=== PATIENT | male | born 2005 | race Native Hawaiian/Other Pacific Islander ===

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

== ENCOUNTER 2025-07-27 02:28 | Emergency (ER) | payer SELFPAY ==
--- NOTE | ~2025-07-27 | XR_ITS ---
CLINICAL HISTORY: fever 1 view chest x-ray Comparison: None provided Findings: No consolidation or effusion. Heart size is normal. No acute fracture. IMPRESSION: 1. No acute findings. This document has been electronically signed by: Sathish Denise MD on 07/27/2025 04:13:49
[2025-07-27 02:35] VITALS: BP 128/75; PULSE 64; RESP 16; TEMP 36.8; O2SAT 99; BMI 20.3
[2025-07-27 03:04] LABS: MANUAL DIFF FLAG NO
--- OUTSIDE RECORDS SUMMARY | 2025-07-27 03:07 | XMS_ITS | Clinical Summary ---
Author Organization [employer] Address [address] [place] [address] Care Team Providers Care Welt Cutter Name Role Phone Isaura Calderón NP Primary Care Provider [phone] Allergies No known active allergies Medications hydrOXYzine HCl (Atarax) 25 MG tabletIndicatio ns:Anxiety-like symptoms Take 1 tab po TID prn anxiety sxs 30 tablet 2 3 Active albuterol 108 (90 Base) MCG/ACT inhaler Inhale 2 puffs every 4 (four) hours if needed for wheezing or shortness of breath. 18 g 3 Active albuterol (2.5 MG/3ML) 0.083% nebulizer solution Take 3 mL (2.5 mg) by nebulization every 6 (six) hours if needed for wheezing. 75 mL 1 3 Active cetirizine (ZyrTEC) 10 MG tabletIndicatio ns:Environmenta l allergies Take 1 tablet (10 mg) by mouth in the morning. 90 tablet 2 4 Active fluticasone (Flonase) 50 MCG/ACT nasal sprayIndication s:Environmental allergies Administer 1 spray into each nostril 2 times daily. Shake gently. Before first use, prime pump. After use, clean tip and replace cap. 16 g 11 4 Active Active Problems Problem Noted Date Diagnosed Date Environmental allergies 01/10/2023 Mild intermittent asthma without complication Academic skill disorder 01/10/2023 Immunizations Immunization Administration Dates Next Due DTaP 02/09/2010, 7,04/09/2006,01/18,2005 HPV 9-Valent 09/18/2017,03/11/2017 Hep A, ped/adol, 2 dose 06/09/2007,08/19/2006 Hep B, Adolescent or Pediatric 04/09/2006,2005,2005 Hib (HbOC) 11/14/2006,01/18/2006,2005 IPV 02/09/2010, 6,01/18/2006,09/20 Influenza, IIV3, injectable 08/29/2011, 9 Influenza, Split (incl. sourav fied surface antigen) 08/06/2013 MMR 11/14/2006,08/19/2006 Meningococcal MCV4P ACYW-135 09/24/2021,03/11/20 17 Pneumococcal Conjugate PCV 7 11/14/2006, 08/19/2006,06/09/2006,04/09 Tdap 03/11/2017 Varicella 02/09/2010,08/14/2007 Social History Tobacco Use Types Packs/Day Years Used Date Smoking Tobacco: Never Passive Smoke Exposure: Never Smokeless Tobacco: Never Tobacco Cessation:Counseling Given: Not Answered Depression Answer Date Recorded Patient Health Questionnaire-9 Score 5 01/10/2023 Depression Answer Date Recorded Patient Health Questionnaire-2 Score 2 01/10/2023 Sex and Gender Information Value Date Recorded Sex Assigned at Male 08/19/2022 10:20 AM EDT Legal Sex Male 10:20 AM EDT Gender Identity Male 08/19/2022 10:20 AM EDT Sexual Orientation Straight 08/19/2022 10 :20 AM EDT Last Filed Vital Signs Vital Sign Reading Time Taken Comments Blood Pressure 124/65 11/21/2023 4:08 PM EST Pulse 82 11/21/2023 4:08 PM EST Temperature 36.7 C (98.1 F) 11/21/2023 4:08 PM EST Respiratory Rate 20 11/21/2023 4:08 PM EST Oxygen Saturation 98% 10/17/2023 3:24 PM EST Inhaled Oxygen Concentration - - Weight 52.8 kg (116 lb 6.4 oz) 11/21/2023 4:08 P M EST Height 166.4 cm (5' 5.5 ) 11/21/2023 4:08 PM EST Body Mass Index 19.08 11/21/2023 4:08 PM EST Plan of Treatment Health Maintenance Due Date Last Done Comments Chlamydia and Gonorrhea Screening 2005 HIV Screening 2005 SDOH Screening 2005 Disability Screening 2005 Dental X-Ray: Full Mouth 04/02/2015 04/01/2012 Alcohol/Substance Use Screening 2017 Family Planning (PISQ) 2020 Meningococcal B Vaccine (1 of 2 - Standard) 2021 Dental Oral Exam 11/14/2022 05/13/2022, 02/2021, 11/16/2019, Additional history exists Dental Prophylaxis 11/14/2022 05/13/2022, 0 02/21/2021, 11/16/2019, Additional history exists Dental X-Ray: Bitewings 05/14/2023 05/13/20 22, 02/21/2021, 11/16/2019, Additional history exists Hepatitis C Screening 2023 Depression Screening 01/11/2024 01/10/2023, 01/11/20 23 Pneumococcal Vaccine: Pediatrics (0 to 5 Years) and At-Risk Patients (6 to 49) Years (1 of 2 - PCV) 2024 11/14/2006, 08/19/2006, 06/09/2006, Additional history exists Tobacco Screening 11/21/2024 11/21/2023 COVID-19 Vaccine (3 - season) 2025 09/24/2021, 08/30/2021 Influenza Vaccine (#1) 2025 3, 08/29/2011, 10/31/2008 DTaP/Tdap/Td Vaccines (7 - Td or Tdap) 03/11/2027 03/11/2017, 02/09/2010, 11/15/2006, Additional history exists Zoster Vaccines (1 of 2) 2055 RSV Patients and Patients Aged 60 years or older (1 - 1-dose 75+ series) 2080 Hepatitis B Vaccines Completed 04/09/2006, 01/18/2006, 2005 HIB Vaccines Completed 11/14/2006, 04/0 10/2005, 2005 Hepatitis A Vaccines Completed 06/09/2007, 08/19/20 IPV Vaccines Completed 02/09/2010, 03/21, 01/18/2006, Additional history exists HPV Vaccines Completed 09/18/2017, 03/11/2017 Meningococcal Vaccine Completed 09/24/2021, 017 RSV under 20 months Aged Out No longe r eligible based on patient's age to complete this topic Rotavirus Vaccines Aged Out No longer eligible based on patient's age to complete this topic Procedures Procedure Name Priority Date/Time Associated Diagnosis Comments PROPHYLAXIS - ADULT Routine 05/13/2022 1 2:00 AM EDT BITEWINGS - 4 RADIOGRAPHIC IMAGES Routine 05/13/2022 12:00 AM EDT PERIODIC ORAL EVALUATION - ESTABLISHED PATIENT Routine 05/13/2022 12:00 AM EDT PANORAMIC RADIOGRAPHIC IMAGE Routine 04/01/2012 12:00 AM EDT from Last 3 Months or Most Recently Relevant to Health Maintenance Insurance [facility] C3 DENTAL-[facility] MEDICAID STAND CHILD Care Teams Welt Cutter Relationship Specialty Start Date End Date Isaura Calderón NP [address] [place] [id number] PCP - General Family Medicine 11/21/23
--- OUTSIDE RECORDS SUMMARY | 2025-07-27 03:07 | XMS_ITS | Encounter Summary ---
Author Organization [employer] Address [address] [facility] [address] [facility] [address] [place] [address] Care Team Providers Care Harvesting Manager Name Role Phone Kassidy Paola CASTILLO Primary Care Provider [phone] Isaura Calderón NP Primary Care Provider [phone] Encounter Details Date Type Department Care Team (Late st Contact Info) Description 11/15/2022 Abstract [facility] [address] [place] [address] Heath Spencer DMD Social History Tobacco Use Types Packs/Day Years Used Date Smoking Tobacco: Never Assessed Sex and Gender Information Value Date Recorded Sex Assigned at Male 08/19/2022 10:20 AM EDT Legal Sex Male 10:20 AM EDT Gender Identity Male 08/19/2022 10:20 AM EDT Sexual Orientation Straight 08/19/2022 10 :20 AM EDT documented as of this encounter Plan of Treatment Not on file documented as of this encounter Procedures Procedure Name Priority Date/Time Associated Diagnosis Comments 19 O SEALANT - PER TOOTH Routine 023 12:00 AM EST 32 EXTRACTION Routine 04/25/2021 12:00 AM EDT 17 EXTRACTION Routine 04/25/2021 12:00 AM EDT 16 EXTRACTION Routine 04/25/2021 12:00 AM EDT 1 EXTRACTION Routine 04/25/2021 12:00 AM EDT 15 O COMPOSITE FILLING Routine 1 12:00 AM EDT 3 O SEALANT - PER TOOTH Routine 11/22/19 20 12:00 AM EST 14 O COMPOSITE FILLING Routine 0 12:00 AM EST 10 I SEALANT - PER TOOTH Routine 019 12:00 AM EDT 7 I SEALANT - PER TOOTH Routine 05/17/20 19 12:00 AM EDT 30 BELEM COMPOSITE FILLING Routine 05/17/20 19 12:00 AM EDT 19 B COMPOSITE FILLING Routine 9 12:00 AM EST 13 DO COMPOSITE FILLING Routine 11/16/19 19 12:00 AM EST 31 O SEALANT - PER TOOTH Routine 018 12:00 AM EST 18 O SEALANT - PER TOOTH Routine 018 12:00 AM EST 29 EXTRACTION Routine 08/13/2017 12:00 AM EDT 21 EXTRACTION Routine 06/17/2017 12:00 AM EDT 12 EXTRACTION Routine 06/17/2017 12:00 AM EDT 5 EXTRACTION Routine 06/17/2017 12:00 AM EDT documented in this encounter Visit Diagnoses Not on filedocumented in this encounter Care Teams Harvesting Manager Relationship Specialty Start Date End Date Paola Yi DO [address] [place] [address] PCP - General Pediatrics 10/20/18 11/20/23 Isaura Calderón NP [address] [place] [address] PCP - General Family Medicine 11/21/23 documented as of this encounter
--- OUTSIDE RECORDS SUMMARY | 2025-07-27 03:07 | XMS_ITS | Encounter Summary ---
Author Organization [employer] Address [address] [place] [address] Care Team Providers Care Single Corner Cutter Name Role Phone Paola Yi DO Primary Care Provider [phone] Isaura Calderón NP Primary Care Provider [phone] Reason for Visit * Reason Onset Date Comments Nurse Triage 08/27/2023 Encounter Details Date Type Department Care Team (Late st Contact Info) Description 08/27/2023 Telephone [facility] [address] [place] [address] Paola Yi DO [address], [place] [id number] Nurse Triage Social History Tobacco Use Types Packs/Day Years Used Date Smoking Tobacco: Never Smokeless Tobacco: Never Depression Answer Date Recorded Patient Health Questionnaire-9 Score 5 01/10/2023 Depression Answer Date Recorded Patient Health Questionnaire-2 Score 2 01/10/2023 Sex and Gender Information Value Date Recorded Sex Assigned at Male 08/19/2022 10:20 AM EDT Legal Sex Male 10:20 AM EDT Gender Identity Male 08/19/2022 10:20 AM EDT Sexual Orientation Straight 08/19/2022 10 :20 AM EDT documented as of this encounter Miscellaneous Notes * Telephone Encounter - Liz Ferrari RN - 08/27/2023 4:33 PM EST Call to Brendon Mejia, reports having a cut to middle finger last night. Per pt punchd mirror and cut finger with broken glass. Per pt cut s pretty deep. No longer bleeding but very painful. Pt denies any discharge. Pt advised may need Td booster, sutures and possible prophylactic abx. Pt and mom agree to seek ER today for exam and possible repair. Pt advised to call back after discharge for follow up. Sent to team for ER status check PRN. Protocol Used: Finger Injury (Adult) Protocol-Based Disposition: Go to ED/UCC Now (or to Office with PCP Approval) Positive Triage Question: * Skin is split open or gaping (length > 1/2 inch or 12 mm) * All higher-acuity triage questions were negative Care Advice Discussed: * Reasons To Call Back - Looks infected (pus, redness, increasing tenderness) - You become worse * Telephone Encounter - Jed Kraft - 08/27/2023 4:28 PM EST Symptom: Skin Injury / Cuts Outcome: Talk to a nurse or provider within 15 minutes Reason: Deep cut The caller accepted this outcome Mirror, mom states its an open wound. Please contact pt mother at [phone] Bulgarian Speaker documented in this encounter Plan of Treatment Not on file documented as of this encounter Visit Diagnoses Not on filedocumented in this encounter Additional Health Concerns Assessment Noted Time PHQ-9 Depression Total Score: 5 01/11/20 23 5:08 PM EDT documented as of this encounter Care Teams Single Corner Cutter Relationship Specialty Start Date End Date Paola Yi DO [address] [place] [address] PCP - General Pediatrics 10/20/18 11/20/23 Isaura Calderón NP [address] [place] [address] PCP - General Family Medicine 11/21/23 documented as of this encounter
[2025-07-27 03:10] LABS: Hematocrit 39.0 % (42.0-52.0); Hemoglobin 12.5 g/dl (14.0-18.0); Imm Gran Abs Auto 0.03 X10*3/uL (0.00-0.03); Imm Gran Pct Auto 0.5 % (0.0-0.4); Lymphocytes Absolute Auto 1.6 X10*3/uL (1.2-4.9); Mean Corpuscular HGB Conc 32.1 g/dl (31.0-36.0); Mean Corpuscular Hemoglobin 25.1 pg (27.0-33.0); Mean Corpuscular Volume 78.3 fL (80.0-98.0); NRBC Abs Auto 0.000 X10*3/uL (0.0-0.012); NRBC Pct Auto 0.0 /100WBC (0.0-0.2); Platelet Count 125 X10*3/uL (160-400); Red Blood Count 4.98 X10*6/uL (4.60-5.80); White Blood Count 5.7 X10*3/uL (4.8-10.8)
--- NOTE | 2025-07-27 03:11 | ED.GENADULT ---
HPI - General Adult General Chief complaint: Fever Stated complaint: fever Time Seen by Provider: 07/27/25 03:05 Source: patient Limitations: no limitations History of Present Illness ED Provider: Tessie Weaver PA-C HPI narrative: 20-year-old male presents with viral syndrome x2 weeks. Associated fever, chills, body aches, headache, sore throat. Unknown if he has had sick contacts. Related Data Home Medications ?Medication ?Instructions ?Recorded ?Confirmed escitalopram oxalate 10 mg tablet 0 mg PO 03/19/22 12/24/23 fluticasone propionate 50 1 spray intranasal DAILY 03/19/22 12/24/23 mcg/actuation nasal spray,suspension loratadine 10 mg tablet 10 mg PO DAILY PRN allergies 03/19/22 12/24/23 Allergies Allergy/AdvReac Type Severity Reaction Status Date / Time Seasonal Allergies Allergy Mild nasal Verified 07/27/25 02:37 congestion No Known Drug Allergies Allergy Unknown UNKNOWN Verified 07/27/25 02:37 Review of Systems Review of Systems: Yes all other systems are reviewed and are negative Constitutional: Constitutional: Reports chills, Reports fatigue, Reports fever(s), Reports headache(s), Reports malaise and Reports night sweats ENT: Reports headache(s) and Reports sore throat Cardiovascular: Cardiovascular: Denies chest pain and Denies dyspnea Respiratory: Respiratory: Denies cough and Denies dyspnea Gastrointestinal: Gastrointestinal: Denies abdominal pain Musculoskeletal: Musculoskeletal: Reports myalgias Neurologic: Reports headache(s) Endocrine: Endocrine: Reports fatigue PMFSH Past Medical History Attestation statement: The following information was validated with the patient. Medical History (Updated 07/27/25 @ 04:16 by ANNE Day) ADHD Social History Social History (Updated 12/24/23 @ 11:05 by Dora Engel NP) Household Members: Family Household Members Other:: Lives w/ mom, siblings. Alcohol intake: never Patient Tobacco Use Status: Never used Tobacco Advance Directives: No Do you have a plan to hurt others: No Plan Current occupational status: employed and student Current occupation: rt hand / dishwash at [employer] Sexual orientation: Straight/Heterosexual Gender identity: Male Physical Exam ED Vital Signs: Vital Signs - 24 hr 07/27/25 02:35 Temperature 98.2 F Pulse Rate 64 Respiratory Rate 16 Blood Pressure 128/75 Pulse Oximetry 99 Oxygen Delivery Method Room Air BMI result Body Mass Index 20.3 Const Other: Alert well-appearing Orientation/consciousness: patient oriented x3 HENMT Other: 0 P mildly erythematous without exudate, uvula midline, no sublingual fluctuance no swelling inferior to the jawline Neck Neck: Yes full ROM and Yes no meningeal signs Resp Effort & Inspection: normal respiratory effort Cardio Other: Normal peripheral perfusion Skin Other: Warm dry no rash Neuro General: patient oriented x3, gait normal, no meningeal signs, no focal motor deficits and CN's II-XI intact bilaterally Psych Other: Cooperative Medical Decision Making Medical Decision Making [facility] Narrative: 20-year-old male presents with viral syndrome x2 weeks. Associated fever, chills, body aches, headache, sore throat. Unknown if he has had sick contacts. No chronic issues History: Per patient I have considered the following differential diagnoses: Viral syndrome, strep pharyngitis, RPA, PUBLIC SAFETY TELECOMMUNICATOR, meningitis, pneumonia Plan: Screening labs including viral panel and strep screen ordered from triage, adding on a chest x-ray. Thought about meningitis, however no meningeal signs on exam, and he has no neck pain. He also has no exam findings consistent with a RPA or PUBLIC SAFETY TELECOMMUNICATOR. I have independently reviewed the following tests: Labs: No leukocytosis, not anemic, no electrolyte abnormality, viral panel negative, strep screen negative Chest x-ray:Findings: No consolidation or effusion. Heart size is normal. No acute fracture. IMPRESSION: 1. No acute findings. Differential Diagnosis Differential Diagnoses: The differential diagnosis associated with the presentation includes See medical decision-making Admission/Observation Consideration of admission/observation: Escalation of care including admission/observation considered Not applicable Lab Data [facility] Lab Attestation statement: I reviewed the patient's lab results. 07/27/25 02:56 07/27/25 02:56 Labs: Lab Results 07/27/25 Range/Units 02:56 WBC 5.7 (4.8-10.8) X10*3/uL RBC 4.98 (4.60-5.80) X10*6/uL Hgb 12.5 L (14.0-18.0) g/dl Hct 39.0 L (42.0-52.0) % MCV 78.3 L (80.0-98.0) fL MCH 25.1 L (27.0-33.0) pg MCHC 32.1 (31.0-36.0) g/dl RDW 13.3 (11.0-16.0) % Plt Count 125 L (160-400) X10*3/uL MPV 10.0 (9.4-12.4) fL Immature Gran % (Auto) 0.5 H (0.0-0.4) % Neut % (Auto) 62.8 (45-73) % Lymph % (Auto) 28.0 (20-40) % [place] % (Auto) 8.1 (2-11) % Eos % (Auto) 0.4 (0-4) % Baso % (Auto) 0.2 (0-2) % Lymph # (Auto) 1.6 (1.2-4.9) X10*3/uL [place] # (Auto) 0.5 (0.1-1.2) X10*3/uL Eos # (Auto) 0.0 (0.0-0.4) X10*3/uL Baso # (Auto) 0.0 (0.0-0.2) X10*3/uL Abs Immat Gran (auto) 0.03 (0.00-0.03) X10*3/uL Absolute Neuts (auto) 3.6 (2.0-8.3) x10*3/uL Absolute Nucleated RBC 0.000 (0.0-0.012) X10*3/uL Nucleated RBC % (auto) 0.0 (0.0-0.2) /100WBC Sodium 142 (135-145) mmol/L Potassium 4.4 (3.3-5.1) mmol/L Chloride 107 (96-108) mmol/L Carbon Dioxide 27 (22-29) mmol/L Anion Gap 12 (12-20) BUN 8 L (9-16) mg/dL Creatinine 0.89 (0.5-1.4) mg/dL Estim Creat Clear Calc 107.0 Estimated GFR > 60 Random Glucose 129 H (60-115) mg/dL Calcium 8.6 (8.4-10.2) mg/dL Magnesium 2.0 (1.6-2.6) mg/dL Total Bilirubin 0.4 (0.0-1.0) mg/dL AST 40 H (5-37) U/L ALT 43 H (0-40) U/L Alkaline Phosphatase 88 (39-117) U/L Total Protein 7.3 (6.5-8.0) g/dL Albumin 4.1 (3.5-5.0) g/dL COVID-19 (GAMALIEL) Negative (Negative) COVID-19 Clin Com See Note Influenza Type A (ROBSON) Negative (Negative) Influenza Type B (ROBSON) Negative (Negative) Influenza A & B Note See Note S. pyogenes GrpA ROBSON Negative (Negative) Radiology Impression Discussion of test interpretation with radiology: I have reviewed the radiologist's reading. Discharge Plan Discharge Clinical Impression: Acute viral syndrome Patient Disposition: Home, Self-Care Instructions: Viral Syndrome (ED) Additional Instructions: All of your screening labs were normal, you were screened for COVID influenza RSV, the viral panel was negative. You were tested for strep throat that was negative. The chest x-ray is clear there was no pneumonia. You have yet another virus has been circulating within the community. See home care instructions. Rest, increase your fluid intake, alternate between [id number] ibuprofen and Tylenol to manage your fever, headache and body pain. Follow up with your primary care provider. Prescriptions: No Action loratadine 10 mg tablet 10 mg PO DAILY PRN (Reason: allergies) fluticasone propionate 50 mcg/actuation spray,suspension 1 spray intranasal DAILY escitalopram oxalate 10 mg tablet 0 mg PO Print Language: Syriac
[2025-07-27 03:16] LABS: IDNOW Serial# 08D9AD1C; Strep A Nucleic Acid Negative (Negative)
[2025-07-27 03:29] LABS: Alanine Aminotransferase 43 U/L (0-40); Albumin Level 4.1 g/dL (3.5-5.0); Alkaline Phosphatase 88 U/L (39-117); Anion Gap 12 (12-20); Aspartate Amino Transferase 40 U/L (5-37); Blood Urea Nitrogen 8 mg/dL (9-16); COVID-19 Test Negative (Negative); Calcium 8.6 mg/dL (8.4-10.2); Carbon Dioxide 27 mmol/L (22-29); Chloride 107 mmol/L (96-108); Creatinine Clr Calc Pharmacy 107.0; Estimated Glomerular Filt Rate > 60; IDNOW Serial# 152EDE1D; IDNOW Serial# 16C4AD1C; Influenza B2 Negative (Negative); Magnesium 2.0 mg/dL (1.6-2.6); Potassium 4.4 mmol/L (3.3-5.1); Sodium 142 mmol/L (135-145); Total Protein 7.3 g/dL (6.5-8.0)
== END 2025-07-27 05:00 | disposition home or self-care (01) ==
PROVIDERS: Emergency Provider Emergency Medicine; PCP Pediatrics
DX: B34.9 Viral infection, unspecified (principal)
CPT/HCPCS: 71045; 80053; 83735; 85025; 87502; 87635; 87651; 99281; 99283

== ENCOUNTER → 2025-07-27 03:31 | Outpatient (BNV) | payer SELFPAY | PROVIDERS: Emergency Provider Emergency Medicine; PCP Pediatrics; Visit Provider Student in an Organized Health Care Education/Training Program | DX: R50.9 Fever, unspecified (principal) | CPT/HCPCS: 71045 ==